=== PATIENT | female | born 1945 | race Caucasian/White ===

== ENCOUNTER 2022-03-23 22:11 | Emergency (ER) | payer MEDICARE ==
[2022-03-24 00:47] LABS: BASOPHIL 0.7 % (0-2); EOSINOPHIL 2.7 % (0-7); HCT 43.5 % (37.0-47.0); HGB 14.2 g/dl (12.5-16.0); LYMPHOCYTE 22.1 % (15-48); MCH 30.5 pg (25.0-31.0); MCHC 32.6 g/dL (32.0-36.0); MCV 93.3 fL (78.0-100.0); MONOCYTE 9.4 % (0-12); NEUTROPHIL 64.7 % (41-80); NRBC 0; PLT 169 K/uL (150-400); RBC 4.66 M/uL (4.20-5.40); RDW 12.3 % (11.5-14.0); WBC 7.5 K/uL (4.0-10.5)
[2022-03-24 01:08] LABS: ALBUMIN 3.6 g/dL (3.4-5.0); BILIRUBIN - TOTAL 0.2 mg/dL (0.2-1.0); BUN/CREAT RATIO (CALC) 23.7 RATIO; CREATININE 0.59 mg/dL (0.51-0.95); GLOBULIN (CALCULATION) 3.6 g/dL; TOTAL PROTEIN 7.2 g/dL (6.4-8.2)
[2022-03-24] MEDS ORDERED: ELIQUIS5 MG PO (08:19)
== END 2022-03-24 02:48 | disposition home or self-care (01) ==
LOC: FER 22:11
PROVIDERS: Emergency Medicine
DX: I80.11 Phlebitis and thrombophlebitis of right femoral vein (principal); F17.210 Nicotine dependence, cigarettes, uncomplicated; Z88.0 Allergy status to penicillin; Z86.718 Personal history of other venous thrombosis and embolism; Z79.01 Long term (current) use of anticoagulants
CPT/HCPCS: 36415; 80053; 85025; 85379; 99283